=== PATIENT | male | born 1950 | race Caucasian/White ===

== ENCOUNTER 2021-09-08 11:56 | Inpatient (IN) ==
[2021-09-08] MEDS ORDERED: *HR* Dextrose 50 % in Water (Syg) 50 ML SYRINGE IVP PRN (13:11)
[2021-09-08] MEDS ORDERED: D5% in Water 1,000 ML IVC PRN (13:11)
[2021-09-08] MEDS ORDERED: Dextrose Gel 15 GM/37.5 ML TUBE PO PRN ×2 (13:11)
[2021-09-08] MEDS ORDERED: Ondansetron 4 MG/2 ML VIAL IVP PRN (13:11)
[2021-09-08] MEDS ORDERED: Naloxone 0.4 MG/ML INJ IVP PRN (13:11)
[2021-09-08] MEDS ORDERED: Acetaminophen 325 MG TABLET PO PRN (13:11)
[2021-09-08 13:54] LABS: Hemoglobin 12.9 g/dL (12.9-16.9); Mean Corpuscular HGB Conc 33.9 g/dL (31.6-35.5); Mean Corpuscular Hemoglobin 31.8 pg (28.0-33.3); Mean Corpuscular Volume 93.6 fL (83.0-100.0); Mean Platelet Volume 9.6 fL (9.4-12.4); Platelet Count 104 K/mcL (140-400); Red Blood Count 4.06 M/mcL (4.19-5.50); Red Cell Distribution Width 14.4 % (11.5-14.5); White Blood Count 7.1 K/mcL (4.3-11.1)
[2021-09-08 14:01] LABS: INR 1.4; Prothrombin Time 15.5 Seconds (9.4-12.1)
[2021-09-08 14:14] LABS: Alanine Aminotransferase 17 Units/L (7-52); Albumin 3.2 g/dL (3.5-5.7); Alkaline Phosphatase 126 Units/L (34-104); Aspartate Amino Transferase 18 Units/L (13-39); BUN/Creatinine Ratio 16 (6-26); Bilirubin,Total 2.4 mg/dL (0.3-1.0); Blood Urea Nitrogen 20 mg/dL (8-23); Calcium 8.6 mg/dL (8.6-10.3); Carbon Dioxide 24 mEq/L (23-29); Chloride 100 mEq/L (98-107); Globulin 3.3 g/dL (2.4-3.5); Glucose 152 mg/dL (70-105); Osmolality,Calculated 284 (280-300); Potassium 4.2 mEq/L (3.5-5.1); Sodium 134 mEq/L (136-145); Total Protein 6.5 g/dL (6.4-8.9); eGFR For African Americans > 60 (> 60); eGFR For Non-African Americans 57 (> 60)
[2021-09-08 16:26] LABS: LDH,Peritoneal Fluid < 25 Units/L (No Ref Range); Total Protein,Peritoneal Fluid < 2.0 g/dL
[2021-09-08 16:35] LABS: RBC,Peritoneal Fluid < 2000 RBC/mcL
[2021-09-08 16:37] LABS: Appearance of Peritoneal Fl CLEAR (Clear)
[2021-09-08] MEDS ORDERED: SODIUM CHLORIDE/NAHCO3/KCL/PEG 4,000 ML SOLN.RECON PO ONE (17:00)
[2021-09-08] MEDS: Insulin LISPRO 300 UNITS/3 ML VIAL SUBQ SCH (17:23)
[2021-09-08 17:32] LABS: Basophils,Peritoneal Fluid 0 %; Eosinophils,Peritoneal Fluid 0 %
[2021-09-09 02:10] LABS: Alanine Aminotransferase 15 Units/L (7-52); Albumin 2.6 g/dL (3.5-5.7); Alkaline Phosphatase 99 Units/L (34-104); Aspartate Amino Transferase 16 Units/L (13-39); BUN/Creatinine Ratio 17 (6-26); Bilirubin,Total 2.1 mg/dL (0.3-1.0); Blood Urea Nitrogen 19 mg/dL (8-23); Calcium 7.8 mg/dL (8.6-10.3); Carbon Dioxide 23 mEq/L (23-29); Chloride 101 mEq/L (98-107); Globulin 2.6 g/dL (2.4-3.5); Glucose 136 mg/dL (70-105); Magnesium 1.1 mg/dL (1.6-2.6); Osmolality,Calculated 280 (280-300); Potassium 3.5 mEq/L (3.5-5.1); Sodium 133 mEq/L (136-145); Total Protein 5.2 g/dL (6.4-8.9); eGFR For African Americans > 60 (> 60); eGFR For Non-African Americans > 60 (> 60)
[2021-09-09 02:20] LABS: Basophils % 1.2 %; Eosinophils # 0.1 K/mcL (0.0-0.6); Eosinophils % 2.9 %; Hematocrit 32.5 % (37.5-50.1); Hemoglobin 11.7 g/dL (12.9-16.9); Immature Granulocytes % 0.6 % (0-4); Lymphocytes # 0.7 K/mcL (0.6-4.6); Lymphocytes % 19.2 %; Mean Corpuscular Hemoglobin 32.7 pg (28.0-33.3); Mean Corpuscular Volume 90.8 fL (83.0-100.0); Mean Platelet Volume 9.7 fL (9.4-12.4); Monocytes # 0.4 K/mcL (0.0-1.3); Monocytes % 10.8 %; Neutrophils # 2.2 K/mcL (1.6-8.9); Red Blood Count 3.58 M/mcL (4.19-5.50); Red Cell Distribution Width 14.2 % (11.5-14.5); Segmented Neutrophils % 65.3 %; White Blood Count 3.4 K/mcL (4.3-11.1)
[2021-09-09 02:24] LABS: Platelet Count 57 K/mcL (140-400)
[2021-09-09] MEDS: Insulin LISPRO 300 UNITS/3 ML VIAL SUBQ SCH ×3 (08:23→17:25)
[2021-09-09] MEDS: Albumin 25% 25gram/100mL 25 GM/100 ML IV.SOLN IVPB SCH ×2 (10:13→10:27)
[2021-09-09] MEDS ORDERED: Lidocaine -MPF 2% 5 ML VIAL ONE (12:46)
[2021-09-09] MEDS: Furosemide 40 MG TABLET PO SCH (12:50)
[2021-09-09] MEDS: DilTIAZem CD (24hr) 120 MG CAP.ER.24H PO SCH ×2 (12:50→15:34)
[2021-09-09] MEDS ORDERED: Perflutren Lipid Microsphere 1.3 ML in 0.9 % Sodium Chloride 8.7 ML IVP PRN (14:34)
[2021-09-09 17:52] LABS: Appearance of Pleural Fl Clear (Clear)
[2021-09-09 18:04] LABS: RBC,Pleural Fluid < 2000 RBC/mcL
[2021-09-09 18:10] LABS: Glucose,Pleural Fluid 149 mg/dL (No Ref Range); LDH,Pleural Fluid 38 Units/L (No Ref Range); Total Protein,Pleural Fluid < 2.0 g/dL
[2021-09-09 20:22] LABS: Basophils,Pleural Fluid 0 %; Eosinophils,Pleural Fluid 0 %; Monocytes,Pleural Fluid 0 %
[2021-09-09] MEDS: Famotidine 20 MG TABLET PO SCH (20:32)
[2021-09-10 06:15] LABS: Basophils % 1.1 %; Immature Granulocytes % 0.4 % (0-4); Red Cell Distribution Width 13.9 % (11.5-14.5)
[2021-09-10 06:17] LABS: Eosinophils # 0.1 K/mcL (0.0-0.6); Eosinophils % 3.2 %; Hematocrit 29.4 % (37.5-50.1); Hemoglobin 10.6 g/dL (12.9-16.9); Immature Platelets 2.4 % (1.1-6.1); Lymphocytes # 0.7 K/mcL (0.6-4.6); Lymphocytes % 25.8 %; Mean Corpuscular HGB Conc 36.1 g/dL (31.6-35.5); Mean Corpuscular Volume 91.6 fL (83.0-100.0); Mean Platelet Volume 9.9 fL (9.4-12.4); Monocytes # 0.3 K/mcL (0.0-1.3); Monocytes % 8.8 %; Neutrophils # 1.7 K/mcL (1.6-8.9); Red Blood Count 3.21 M/mcL (4.19-5.50); Segmented Neutrophils % 60.7 %; White Blood Count 2.8 K/mcL (4.3-11.1)
[2021-09-10 06:31] LABS: Platelet Count 64 K/mcL (140-400)
[2021-09-10 07:07] LABS: BUN/Creatinine Ratio 15 (6-26); Blood Urea Nitrogen 16 mg/dL (8-23); Calcium 8.1 mg/dL (8.6-10.3); Carbon Dioxide 27 mEq/L (23-29); Chloride 102 mEq/L (98-107); Glucose 135 mg/dL (70-105); Osmolality,Calculated 279 (280-300); Potassium 3.9 mEq/L (3.5-5.1); Sodium 133 mEq/L (136-145); eGFR For African Americans > 60 (> 60); eGFR For Non-African Americans > 60 (> 60)
[2021-09-10] MEDS: Insulin LISPRO 300 UNITS/3 ML VIAL SUBQ SCH ×3 (09:25→19:17)
[2021-09-10] MEDS: DilTIAZem CD (24hr) 180 MG CAP.ER.24H PO SCH (09:31)
[2021-09-10] MEDS: Furosemide 40 MG TABLET PO SCH (09:32)
[2021-09-10] MEDS: Albumin 25% 25gram/100mL 25 GM/100 ML IV.SOLN IVPB SCH (14:58)
[2021-09-10] MEDS ORDERED: 0.9 % Sodium Chloride 500 ML ONE (15:56)
[2021-09-10] MEDS ORDERED: 0.9 % Sodium Chloride 500 ML IVC ONE (15:59)
[2021-09-10] MEDS: Famotidine 20 MG TABLET PO SCH (20:45)
[2021-09-11 01:03] LABS: Fluid Source for Albumin PERIT/ASCITES
[2021-09-11 02:18] LABS: Hemoglobin 11.5 g/dL (12.9-16.9); Mean Corpuscular Volume 89.8 fL (83.0-100.0); Red Cell Distribution Width 13.9 % (11.5-14.5); Segmented Neutrophils % 63.6 %
[2021-09-11 02:20] LABS: Basophils # 0.1 K/mcL (0.0-0.2); Basophils % 1.3 %; Eosinophils # 0.1 K/mcL (0.0-0.6); Eosinophils % 2.5 %; Hematocrit 32.4 % (37.5-50.1); Immature Granulocytes % 0.2 % (0-4); Immature Platelets 2.6 % (1.1-6.1); Lymphocytes % 22.8 %; Mean Corpuscular HGB Conc 35.5 g/dL (31.6-35.5); Mean Corpuscular Hemoglobin 31.9 pg (28.0-33.3); Mean Platelet Volume 9.9 fL (9.4-12.4); Monocytes # 0.4 K/mcL (0.0-1.3); Monocytes % 9.6 %; Neutrophils # 2.9 K/mcL (1.6-8.9); Red Blood Count 3.61 M/mcL (4.19-5.50); White Blood Count 4.5 K/mcL (4.3-11.1)
[2021-09-11 02:28] LABS: Platelet Count 86 K/mcL (140-400)
[2021-09-11 02:33] LABS: BUN/Creatinine Ratio 13 (6-26); Blood Urea Nitrogen 15 mg/dL (8-23); Carbon Dioxide 27 mEq/L (23-29); Chloride 101 mEq/L (98-107); Glucose 161 mg/dL (70-105); Magnesium 1.2 mg/dL (1.6-2.6); Osmolality,Calculated 278 (280-300); Potassium 3.5 mEq/L (3.5-5.1); Sodium 132 mEq/L (136-145); eGFR For African Americans > 60 (> 60); eGFR For Non-African Americans 60 (> 60)
[2021-09-11] MEDS: Furosemide 40 MG TABLET PO SCH (08:30)
[2021-09-11] MEDS: DilTIAZem CD (24hr) 180 MG CAP.ER.24H PO SCH (08:36)
[2021-09-11] MEDS ORDERED: Lidocaine -MPF 2% 5 ML VIAL ONE ×2 (10:21→11:39)
[2021-09-11] MEDS ORDERED: *HR* Metoprolol 5 MG/5 ML VIAL IVP ONE (10:38)
[2021-09-11] MEDS ORDERED: EPHEDrine 50 MG/ML VIAL ONE (10:43)
[2021-09-11] MEDS: Insulin LISPRO 300 UNITS/3 ML VIAL SUBQ SCH ×4 (12:16→20:00)
[2021-09-11] MEDS ORDERED: Insulin LISPRO 300 UNITS/3 ML VIAL SUBQ SCH (21:00)
[2021-09-11] MEDS: Famotidine 20 MG TABLET PO SCH (21:41)
[2021-09-12 04:00] VITALS: PULSE 80
[2021-09-12 07:24] VITALS: BP 101/61; TEMP 97.6; O2SAT 95
[2021-09-12] MEDS: DilTIAZem CD (24hr) 180 MG CAP.ER.24H PO SCH (08:03)
[2021-09-12] MEDS: Furosemide 40 MG TABLET PO SCH (08:03)
[2021-09-12] MEDS: Insulin LISPRO 300 UNITS/3 ML VIAL SUBQ SCH (08:07)
== END 2021-09-12 09:35 | disposition home health service (06) | DRG 433 ==
LOC: 3ANU → SUATTDRO 09-10 13:07
PROVIDERS: ADMIT Internal Medicine; ATTEND Internal Medicine
PROC: ENDOAPI (2021-09-09 12:15)
PROC: ENDOCBX (2021-09-11 17:50)
PROC: ENDOEBX (2021-09-11 17:50)